=== PATIENT | male | born 1990 | race Caucasian/White ===

== ENCOUNTER 2017-02-13 13:50 | Outpatient (RCR) | payer OTHER | END 2017-02-14 15:18 | disposition still patient (30) | LOC: WSOH 13:50 | DX: S39.012D Strain of muscle, fascia and tendon of lower back, subsequent encounter (principal); M62.830 Muscle spasm of back; X50.9XXD Other and unspecified overexertion or strenuous movements or postures, subsequent encounter; Y99.0 Civilian activity done for income or pay | CPT/HCPCS: G0283-GP ==

== ENCOUNTER → 2018-10-03 | Outpatient (CLI) | payer OTHER | LOC: MHCPAIN 10:17 | DX: G89.29 Other chronic pain (principal); M47.817 Spondylosis without myelopathy or radiculopathy, lumbosacral region; M54.16 Radiculopathy, lumbar region; M53.3 Sacrococcygeal disorders, not elsewhere classified | CPT/HCPCS: G0463 ==